=== PATIENT | female | born 1985 | race Caucasian/White ===

== ENCOUNTER 2017-01-22 01:46 | Inpatient (IN) | payer OTHER ==
[2017-01-22] MEDS ORDERED: ELECTROLYTE-148 SOLN 500 ML IV ONE (03:00)
[2017-01-22 03:16] LABS: BASOPHIL 0.5 % (0-2.0); EOSINOPHIL 1.6 % (0-4.5); MCH 27.5 pg (25.7-33.7); MCHC 33.3 g/dl (32.0-36.0); MEAN CELL VOLUME 82.7 fl (80-96); MEAN PLT VOLUME 7.9 fl (7.5-11.1); NEUTROPHILS 71.6 % (42.8-82.8); PLATELET COUNT 211 K/MM3 (134-434); RDW 14.8 % (11.6-15.6); WHITE BLOOD COUNT 11.1 K/mm3 (4.0-10.0)
[2017-01-22 03:35] LABS: INR 1.12 (0.82-1.09); PROTHROMBIN TIME (PATIENT) 12.3 SEC (9.98-11.88)
[2017-01-22 03:37] LABS: ACTIVATED PTT 28.6 SECONDS (26.9-34.4)
[2017-01-22 03:41] LABS: CALCIUM 9.4 mg/dL (8.5-10.1); CREATININE 0.7 mg/dL (0.55-1.02)
[2017-01-22 05:24] VITALS: BMI 40.4
[2017-01-22] MEDS ORDERED: CITRIC ACID/SODIUM CITRATE 30 ML UNIT-DOSE CUP PO ONE (05:32)
[2017-01-22] MEDS ORDERED: ELECTROLYTE-148 SOLN 1,000 ML IV SCH (05:45)
--- NOTE | 2017-01-22 05:45 | HP ---
Past Medical History - Primary Care Physician PCP:: Dori Ramos - Admission Chief Complaint: 31 yrs , previous c/section, SROM since 10.40 pm 01/21/17 , onset LP following that , requests for repeat c/section History of Present Illness: PNC at , [facility] wt gain 71 lbs . Morbidly obese pt work Up : O Pos, Hbsag neg, Rpr nr, Rubella pos, Hiv nr, Quantiferon neg, Pngt 129, Gbs neg, Pa nilm, Gc/Ct neg NT sceen & modified Sequential neg Grwth sono by MFM were done , reviewed. 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 Weeks Gestation by Dates: 38.3 ...EDC by Dates: 02/02/17 ...EDC by Sono: 02/02/17 Heme/Onc: No: Sickle Cell Trait Infectious Disease: No: AIDS, HIV, MRSA, STD's, Tuberculosis Endocrine: No: Diabetes Mellitus, Hyperparathyroidism, Hyperthyroidism, Hypothyroidism - Past Surgical History Past Surgical History: Yes: (05/2013) Hx Myomectomy: No Hx Transabdominal Cerclage: No - Smoking History Smoking history: Never smoked Have you smoked in the past 12 months: No Aproximately how many cigarettes per day: 0 - Alcohol/Substance Use Hx Alcohol Use: No History of Substance Use: reports: None - Social History History of Recent Travel: No Home Medications - Allergies Allergies/Adverse Reactions: Allergies Allergy/AdvReac Type Severity Reaction Status Date / Time aspirin Allergy Unknown Difficulty Verified 06/10/16 09:47 Breathing - Home Medications Home Medications: Ambulatory Orders Albuterol Sulfate Inhaler - [Ventolin Hfa *Inhaler*] 1 inh IH PRN 05/07/13 Budesonide/Formeterol Fumarate [SYMBICORT 160/4.5mcg -] 1 inh PO DAILY PRN 02/27 Montelukast Na [Singulair -] 10 mg PO HS PRN 06/10/16 Vit No.130/Iron/FA [ Vitamins] 1 each PO DAILY #30 tablet 06/10 Physical Exam - Maternity Vital Signs: Vital Signs Temperature 97.8 F 01/22/17 02:40 Pulse Rate 90 01/22/17 02:40 Respiratory Rate 20 01/22/17 02:40 Blood Pressure 124/78 01/22/17 02:40 O2 Sat by Pulse Oximetry (%) Selected Entries 01/22/17 02:40 Weight 290 lb Constitutional: Yes: Well Nourished, Mild Distress, Obese Eyes: Yes: WNL HENT: Yes: WNL, Normocephalic Neck: Yes: WNL Cardiovascular: Yes: WNL, Regular Rate and Rhythm Lungs: Clear to auscultation Breast(s): Yes: WNL - Abdominal Exam/OB Fundal Height: 40 Number of Fetuses: Single Presentation: Vertex Contractions: Yes Regularity: Irregular Intensity: Mild/Mod (4-6 min) Heart Rate (range): 140-150 Heart Rate Location: [facility] Category: I Accelerations: Uniform Decelerations: None - Vaginal Exam/OB Vaginal Bleediing: No Dilatation (cm): close Effacement (%): 60 Amniotic Membrane Status: Ruptured Nitrazine Test: Positive Amniotic Fluid: Yes: Clear Presentation: Vertex/Position Station: -3 - Physical Exam Musculoskeletal: Yes: WNL Extremities: Yes: WNL. No: Calf Tenderness Edema: LLE: 1+, RLE: 1+ Integumentary: Yes: Incision (pfannensteil scar) Deep Tendon Reflex Grade: Normal +2 ...Motor Strength: WNL Psychiatric: Yes: WNL, Alert, Oriented - Labs Lab Results: CBC, BMP 01/22/17 03:10 01/22/17 03:10 Hemorrhage Risk Assessment - Risk Factors Medium Risk Factors: Yes: Prior , uterine surgery,or multiple laparotomies, Obesity (BMI >40) Risk Score: 2 Risk Level: High Risk Problem List - Problems (1) 38 to 41 weeks gestation of Code(s): CZD1182 - (2) Previous section Code(s): Z98.891 - HISTORY OF UTERINE SCAR FROM PREVIOUS SURGERY (3) SROM (spontaneous rupture of membranes) Code(s): AKD2881 - (4) Labor established Code(s): TAY3060 - (5) Morbid obesity with BMI of 40.0-44.9, adult Code(s): E66.01 - MORBID (SEVERE) OBESITY DUE TO EXCESS CALORIES Z68.41 - BODY MASS INDEX (BMI) 40.0-44.9, ADULT Assessment/Plan 31 yrs , previous c/s , srom, in early labor,Morbidly obese , Gbs neg requests for repeat c/s
[2017-01-22] MEDS ORDERED: METHYLERGONOVINE MALEATE 0.2 MG/1 ML AMP IM PRN (09:30)
[2017-01-22] MEDS ORDERED: IBUPROFEN 800 MG/8 ML IJ IVPB PRN (09:46)
--- NOTE | 2017-01-22 10:03 | OP ---
Operative Note - Note: Operative Date: 01/22/17 Pre-Operative Diagnosis: 38.5 weeks, previous c/section , SROM , in labor Operation: Repeat LFTC/section Findings: 8.55 AM, Baby Boy, vx , Rot position, 9/9, wt 8'1'.Ht 19' both tubes & ovaries normal Dr knight supervisor underwriting clerks present in the room Surgeon: Dori Ramos Compensation Administrator: Bernardino Purcell Anesthesiologist/PARTS FINISHER: Carlin Cheema Anesthesia: Spinal Specimens Removed: placenta. cord blood Estimated Blood Loss (mls): 800 Drains, Volume Out (mls): 200 (ramos output , ana cristina color ) Fluid Volume Replaced (mls): 1,500 (iv Ancef 2gm prior to incision ) Operative Report Dictated: Yes
[2017-01-22] MEDS ORDERED: ONDANSETRON 4 MG/2 ML VIAL IVPB PRN (10:13)
[2017-01-22] MEDS ORDERED: OXYTOCIN IV ONE (10:15)
[2017-01-22] MEDS ORDERED: SODIUM CHLORIDE IV ONE (10:15)
--- NOTE | 2017-01-22 10:21 | PN ---
Delivery - Delivery Section: Repeat, Low Flap Transverse (Indication : 38.3 weeks,previous c/section SROM, labor) Type of Anesthesia: Spinal EBL (cc): 800 (IM Methergine 9.30 am post op was given ) Delivery, Single - Stages of Labor Date 1st Stage Initiatied: 01/21/17 Time 1st Stage Initiated: 23:00 Date of Delivery: 01/22/17 Time of Delivery: 08:55 Date Placenta Delivered: 01/22/17 Time Placenta Delivered: 08:56 Placenta: Yes: Manual Removal, Uterine Exploration - Condition of Infant Delivery Manager/Cement Handler Present: Yes Name: Jess Xiao Infant Gender: Male Weight: 8 lb 1 oz Position: Right, OT (cord around neckx1) Total Hours ROM (Hrs/Mins): 10 hrs 16 min - 1 Minute Total Score: 9 5 Minutes Total Score: 9 - Feeding Plan Initial Plan: Exclusive throughout hospitalization Remarks - Remarks Remarks: 31 yrs , 38.3 weeks,previous c/s , Srom , followed by labor , gbs neg, PNC at 2, [facility] Intraop 2 gm iv Ancef prior to incision was given
--- NOTE | 2017-01-22 15:01 | OP ---
DATE OF OPERATION: 01/22/2017 PREOPERATIVE DIAGNOSIS: 38.5 weeks, previous section, spontaneous rupture of membranes, in labor. PROCEDURE PERFORMED: Repeat wfl-gjnu-eywdazbnva section. SURGEON: Dori Ramos MD DIRECTOR STRATEGY: MARQUISE Quezada ANESTHESIOLOGIST: Carlin Cheema MD ANESTHESIA: Spinal. INDICATIONS: This is a 31-year-old 2, para 1-0-0-1 female, morbidly obese, BMI 40.4. She has a history of rupture of membranes since 10:40 p.m. on January 21, and she was in labor, meghana every 4 to 5 minutes. Cervix was still closed. DESCRIPTION OF PROCEDURE: The patient's abdomen was shaved and prepped. A Strong catheter was placed. She was taken to the operating room table. Spinal anesthesia was given. The patient was placed in the supine position. The abdomen was painted and draped in the usual manner. A Pfannenstiel incision was made through the skin and subcutaneous tissue. The anterior rectus sheath was incised transversely. Bleeding points were clamped and cauterized. The rectus muscle was from the rectus sheath. The parietal peritoneum was opened vertically. Then the lower flap by the peritoneum was incised transversely. The lower uterine segment was also incised transversely. The amniotic fluid was clear. The baby was delivered from ROT position at 8:55 a.m. Apgars were 9 and 9, a baby boy. Baby's weight is 8 pounds 1 ounce and length was [address] Jess Xiao (cell stripper final) was present in the room. The placenta was removed completely with the membranes. The uterine incision was closed in 2 layers. The 1st layer was closed with Biosyn 0 suture, a continuous locking sensation. The 2nd layer was closed with Biosyn 0 suture, continuous intermittently locking suture, with vertical mattress sutures were taken. Hemostasis was checked. The bladder peritoneum also was closed with Biosyn 0 suture. Both tubes and ovaries were normal. Irrigation was done. Both tubes and ovaries were normal. Sponge, instrument and needle counts were correct. Then closure of the abdomen was done. The parietal peritoneum was closed with Vicryl 0 suture. Interrupted sutures were taken in the muscles and approximated together, then below the rectus sheath. Hemostasis was checked between the muscle layer and rectus sheath. Then the anterior rectus sheath was closed with Vicryl 0 suture; continuous sutures were taken. Hemostasis was checked in the the subcutaneous tissue, and the subcutaneous tissue was approximated with Vicryl 2-0 interrupted sutures, and the skin was approximated with dunia. A pressure dressing was given. Blood clots were removed from the vagina. The uterus was becoming soft. So bimanual massage was given and the anesthesiologist was asked to give her an injection of Methergine 0.25 IM stat and 40 units of Pitocin was placed in 1000 mL of normal saline. The patient tolerated the procedure well. She was transferred to the recovery room in stable condition. Estimated blood loss was 800 mL. Urine output intraoperatively was 200 mL. She received 2 g of IV Ancef prior to the incision. Von [id number] MTDD
[2017-01-22] MEDS ORDERED: CEFAZOLIN (PRE-DOCKED) 50 ML IVPB ONE (16:35)
[2017-01-22] MEDS: CEFAZOLIN 1 GM/D5W 50 ML IVPB SCH (16:39)
[2017-01-22] MEDS: OXYTOCIN 20 UNITS in 0.9% NS 1,000 ML IV SCH (18:44)
[2017-01-22] MEDS: ENOXAPARIN NA (PORCINE) 40 MG/0.4 ML DISP.SYRIN SQ SCH (21:48)
[2017-01-23] MEDS ORDERED: CEFAZOLIN (PRE-DOCKED) 50 ML IVPB ONE ×2 (01:34→09:46)
[2017-01-23] MEDS: CEFAZOLIN 1 GM/D5W 50 ML IVPB SCH ×2 (01:38→09:53)
[2017-01-23] MEDS: IBUPROFEN 600 MG TABLET (FP) PO PRN ×4 (01:46→19:56)
[2017-01-23] MEDS: SIMETHICONE 80 MG TAB.CHEW (FP) PO PRN ×4 (01:46→19:56)
[2017-01-23] MEDS: OXYTOCIN 20 UNITS in 0.9% NS 1,000 ML IV SCH (04:18)
--- NOTE | 2017-01-23 07:27 | PN ---
Post Progress Note Post Day: 1 Type of Delivery: Repeat C/S Vital Signs: Vital Signs Temperature 98.1 F 01/23/17 06:00 Pulse Rate 81 01/23/17 06:00 Respiratory Rate 18 01/23/17 06:00 Blood Pressure 115/56 01/23/17 06:00 O2 Sat by Pulse Oximetry (%) 100 01/22/17 10:35 Breast Exam: Yes: Soft Uterus: Yes: Fundus Firm Incision: Yes: Dressing dry and intact Abdomen/GI: Yes: Abdomen soft Lochia: Yes: Rubra Lochia, amount: Small Extremities: Yes: Calves non-tender Perineum: Yes: Intact Activity: Ambulating - Labs Labs: CBC WBC 11.1 K/mm3 (4.0-10.0) H 01/22/17 03:10 RBC 3.95 M/mm3 (3.60-5.2) 01/22/17 03:10 Hgb 10.9 GM/dL (10.7-15.3) 01/22/17 03:10 Hct 32.6 % (32.4-45.2) 01/22/17 03:10 MCV 82.7 fl (80-96) 01/22/17 03:10 MCHC 33.3 g/dl (32.0-36.0) 01/22/17 03:10 RDW 14.8 % (11.6-15.6) 01/22/17 03:10 Plt Count 211 K/MM3 (134-434) 01/22/17 03:10 MPV 7.9 fl (7.5-11.1) 01/22/17 03:10 Neutrophils % 71.6 % (42.8-82.8) 01/22/17 03:10 Lymphocytes % 20.9 % (8-40) 01/22/17 03:10 Monocytes % 5.4 % (3.8-10.2) 01/22/17 03:10 Eosinophils % 1.6 % (0-4.5) 01/22/17 03:10 Basophils % 0.5 % (0-2.0) 01/22/17 03:10 Assessment/Plan oob reg diet check labs pain meds
[2017-01-23] MEDS: oxyCODONE HCL 5 MG TABLET PO PRN ×3 (07:47→19:55)
--- NOTE | 2017-01-23 08:05 | PN ---
Progress Note (short form) - Note Progress Note: Post op day#1.S/P C section under spinal anesthesia with duramorph uneventful.Patient stable and has little pain for which she is on medication.No any anesthesia related problem.Patient DC from the anesthesia care.
[2017-01-23 09:17] LABS: BASOPHIL 0.3 % (0-2.0); EOSINOPHIL 0.8 % (0-4.5); MCH 28.3 pg (25.7-33.7); MCHC 33.9 g/dl (32.0-36.0); MEAN CELL VOLUME 83.5 fl (80-96); MEAN PLT VOLUME 7.6 fl (7.5-11.1); NEUTROPHILS 78.6 % (42.8-82.8); PLATELET COUNT 198 K/MM3 (134-434); WHITE BLOOD COUNT 10.8 K/mm3 (4.0-10.0)
[2017-01-23] MEDS ORDERED: BISACODYL 10 MG SUPP.RECT RC PRN (09:47)
[2017-01-23] MEDS: PRENATAL VITAMINS W/ FOLIC ACID TABLET (FP) PO SCH (09:48)
[2017-01-23] MEDS: diphenhydrAMINE HCL 25 MG CAPSULE (FP) PO PRN ×2 (09:48→19:57)
[2017-01-23] MEDS ORDERED: PNEUMOC 13-VAL CONJ-DIP CRM/PF 0.5 ML DISP.SYRIN IM ONE (10:00)
[2017-01-23] MEDS ORDERED: PNEUMOCOCCAL 23 VACCINE 0.5 ML VIAL IM ONE (10:00)
[2017-01-23] MEDS ORDERED: ALBUTEROL SO4 6.7 GM HFA INHALER IH PRN (14:00)
[2017-01-23] MEDS: FERROUS SO4 325 MG TABLET (FP) PO SCH (21:16)
[2017-01-23] MEDS: ENOXAPARIN NA (PORCINE) 40 MG/0.4 ML DISP.SYRIN SQ SCH (21:17)
[2017-01-24] MEDS: oxyCODONE HCL 5 MG TABLET PO PRN ×3 (05:39→20:40)
[2017-01-24] MEDS: SIMETHICONE 80 MG TAB.CHEW (FP) PO PRN ×3 (05:39→20:39)
[2017-01-24] MEDS: IBUPROFEN 600 MG TABLET (FP) PO PRN ×3 (05:40→20:39)
--- NOTE | 2017-01-24 09:19 | PN ---
Progress Note (short form) - Note Progress Note: pod 2 doing well, no c/o, ambualting, no excess vaginal bleeding CBC, BMP 01/23/17 08:00 01/22/17 03:10 Last Vital Signs Temp Pulse Resp BP Pulse Ox 98.7 F 101 H 20 122/72 100 01/23/17 20:46 01/23/17 20:46 01/23/17 20:46 01/23/17 20:46 01/22/17 10:35 abdomen soft, no distension, no cva incision dry, claen no calf tenderness plan ambulate, cbc in am
[2017-01-24] MEDS: FERROUS SO4 325 MG TABLET (FP) PO SCH ×2 (09:27→21:59)
[2017-01-24] MEDS: PRENATAL VITAMINS W/ FOLIC ACID TABLET (FP) PO SCH (09:27)
[2017-01-24] MEDS: OXYTOCIN 20 UNITS in 0.9% NS 1,000 ML IV SCH (20:31)
[2017-01-24] MEDS: SENNOSIDES/DOCUSATE COMBO (SENNA PLUS) TABLET (UD) PO PRN (20:39)
[2017-01-24] MEDS: ENOXAPARIN NA (PORCINE) 40 MG/0.4 ML DISP.SYRIN SQ SCH (21:59)
--- NOTE | 2017-01-25 03:28 | PN ---
Post Progress Note Post Day: 3 Type of Delivery: Repeat C/S Vital Signs: Vital Signs Temperature 98.0 F 01/24/17 22:00 Pulse Rate 79 01/24/17 22:00 Respiratory Rate 18 01/24/17 22:00 Blood Pressure 130/78 01/24/17 22:00 O2 Sat by Pulse Oximetry (%) 100 01/22/17 10:35 Breast Exam: Yes: Soft Uterus: Yes: Fundus Firm Abdomen/GI: Yes: Abdomen soft Lochia: Yes: Rubra Lochia, amount: Small Extremities: Yes: Calves non-tender Perineum: Yes: Intact Activity: Ambulating - Labs Labs: CBC WBC 10.8 K/mm3 (4.0-10.0) H 01/23/17 08:00 RBC 4.23 M/mm3 (3.60-5.2) 01/23/17 08:00 Hgb 12.0 GM/dL (10.7-15.3) D 01/23/17 08:00 Hct 35.3 % (32.4-45.2) 01/23/17 08:00 MCV 83.5 fl (80-96) 01/23/17 08:00 MCHC 33.9 g/dl (32.0-36.0) 01/23/17 08:00 RDW 15.0 % (11.6-15.6) 01/23/17 08:00 Plt Count 198 K/MM3 (134-434) 01/23/17 08:00 MPV 7.6 fl (7.5-11.1) 01/23/17 08:00 Neutrophils % 78.6 % (42.8-82.8) 01/23/17 08:00 Lymphocytes % 16.3 % (8-40) D 01/23/17 08:00 Monocytes % 4.0 % (3.8-10.2) 01/23/17 08:00 Eosinophils % 0.8 % (0-4.5) 01/23/17 08:00 Basophils % 0.3 % (0-2.0) 01/23/17 08:00 Assessment/Plan oob reg diet pain meds
[2017-01-25] MEDS: oxyCODONE HCL 5 MG TABLET PO PRN ×3 (03:48→20:16)
[2017-01-25] MEDS: IBUPROFEN 600 MG TABLET (FP) PO PRN ×3 (03:48→20:16)
[2017-01-25] MEDS: SIMETHICONE 80 MG TAB.CHEW (FP) PO PRN ×3 (03:48→20:16)
[2017-01-25 09:05] LABS: BASOPHIL 0.5 % (0-2.0); EOSINOPHIL 2.9 % (0-4.5); MCHC 33.6 g/dl (32.0-36.0); MEAN CELL VOLUME 83.5 fl (80-96); MEAN PLT VOLUME 7.4 fl (7.5-11.1); NEUTROPHILS 66.9 % (42.8-82.8); PLATELET COUNT 191 K/MM3 (134-434); RDW 15.4 % (11.6-15.6); WHITE BLOOD COUNT 7.1 K/mm3 (4.0-10.0)
[2017-01-25] MEDS: FERROUS SO4 325 MG TABLET (FP) PO SCH ×2 (10:06→22:01)
[2017-01-25] MEDS: PRENATAL VITAMINS W/ FOLIC ACID TABLET (FP) PO SCH (10:06)
[2017-01-25] MEDS: SENNOSIDES/DOCUSATE COMBO (SENNA PLUS) TABLET (UD) PO PRN (22:01)
[2017-01-25] MEDS: ENOXAPARIN NA (PORCINE) 40 MG/0.4 ML DISP.SYRIN SQ SCH (22:01)
[2017-01-26] MEDS: IBUPROFEN 600 MG TABLET (FP) PO PRN ×2 (05:09→10:11)
[2017-01-26] MEDS: oxyCODONE HCL 5 MG TABLET PO PRN (05:09)
[2017-01-26] MEDS: SIMETHICONE 80 MG TAB.CHEW (FP) PO PRN ×2 (05:09→10:12)
[2017-01-26] MEDS: FERROUS SO4 325 MG TABLET (FP) PO SCH (10:06)
[2017-01-26] MEDS: PRENATAL VITAMINS W/ FOLIC ACID TABLET (FP) PO SCH (10:06)
[2017-01-26 11:51] VITALS: BP 123/76; PULSE 77; TEMP 98.2
--- NOTE | 2017-01-28 17:50 | DS ---
Physical Exam-ANGLE BENDER Vital Signs: Vital Signs Temperature 98.2 F 01/26/17 10:00 Pulse Rate 77 01/26/17 10:00 Respiratory Rate 20 01/26/17 10:00 Blood Pressure 123/76 01/26/17 10:00 O2 Sat by Pulse Oximetry (%) 100 01/22/17 10:35 Constitutional: Yes: Well Nourished, Obese Eyes: Yes: WNL HENT: Yes: WNL Neck: Yes: WNL Cardiovascular: Yes: WNL Respiratory: Yes: WNL Gastrointestinal: Yes: WNL, Normal Bowel Sounds, Soft, Abdomen, Obese, Other ( bm done). No: Distention Renal/: Yes: WNL, Other (voiding without difficulty) Pelvis: Yes: WNL ....Post : Yes: Uterus firm, Uterus non-tender, Moderate lochia rubra Breast(s): Yes: WNL Musculoskeletal: Yes: WNL Extremities: Yes: Calf Tenderness Edema: Yes Edema: LLE: 1+, RLE: 1+ Integumentary: Yes: Incision Wound/Incision: Yes: Clean/Dry, Well Approximated, Mcdonough Intact, Open to air. No: Draining, Reddened, Bleeding Neurological: Yes: WNL, Alert, Oriented ...Motor Strength: WNL Psychiatric: Yes: WNL Labs: CBC, BMP 01/25/17 08:00 01/22/17 03:10 Delivery - Delivery Section: Repeat, Low Flap Transverse (Indication : 38.3 weeks,previous c/section SROM, labor) Type of Anesthesia: Spinal Episiotomy/Laceration: None EBL (cc): 800 Delivery, Single - Stages of Labor Date 1st Stage Initiatied: 01/21/17 Time 1st Stage Initiated: 23:00 Date of Delivery: 01/22/17 Time of Delivery: 08:55 Time Placenta Delivered: 08:56 Placenta: Yes: Manual Removal, Uterine Exploration - Condition of Infant Fabric Coating Supervisor/Pharmacy Informatics Manager Present: Yes Name: Jess Xiao Infant Gender: Male Weight: 8 lb 1 oz Position: Right, OT Total Hours ROM (Hrs/Mins): 10 hrs 16 min - 1 Minute Total Score: 9 5 Minutes Total Score: 9 - Feeding Plan Initial Plan: Exclusive throughout hospitalization Remarks - Remarks Remarks: 31 yrs , 38.3 weeks,previous c/s , Srom , followed by labor , gbs neg, PNC at 2, [facility] Intraop 2 gm iv Ancef prior to incision was given . post op course uneventful. discharge on 01/26/17 she will RTC on 01/28/17 for dunia removal Discharge Summary Reason For Visit: IN LABOR Condition: Stable - Instructions Diet, Activity, Other Instructions: Post Instructions DIET: Continue good diet high in protein, calcium, and iron rich foods. Drink at least eight (8) glasses of water daily in addition to other fluids. Regular diet MEDICATIONS: Continue vitamins and iron as previously directed. Motrin and Tylenol may be taken for minor discomfort. ACTIVITY: Mild to moderate exercise may be started in two (2) weeks. Take frequent rest periods. Resume normal activity after six (6) week check up. WOUND CARE OF OPERATIVE SITE: Continue use of perineal bottle until vaginal discharge stops. Keep area clean. Shower daily. Keep abdominal wound dry. Report any drainage or redness to physician. Tub baths, tampons and douches are not permitted for [address] Breast feeding & or Bottle feeding BREAST CARE: (For those that are not ): If engorgement occurs: Wear tight fitting bra. Take Tylenol or Motrin for pain. Apply cold packs (ice in bags to each breast ) FAMILY PLANNING: There are many control alternatives to pursue and they should be discussed at your first office visit. You may resume sexual activity after your six (6) week check up. (Remember, is not a contraceptive) NEXT PHYSICIAN APPOINTMENT: Be certain to call for a one (1) week appointment, unless otherwise directed. RTC Friday for wound check, dunia removal Call Clinic or got to Emergency Dept if you have any of the following: Heavy vaginal bleeding Painful urination Leg pain Unusual odor noted to vaginal bleeding High fever Red streaking noted on breast Referrals: Dori Ramos MD [Staff Physician] - Disposition: HOME - Home Medications Comprehensive Discharge Medication List: Ambulatory Orders Albuterol Sulfate Inhaler - [Ventolin HFA Inhaler -] 1 inh IH PRN 05/07/13 Budesonide/Formeterol Fumarate [SYMBICORT 160/4.5mcg -] 1 inh PO DAILY PRN 02/27 Montelukast Na [Singulair -] 10 mg PO HS PRN 06/10/16 Vit No.130/Iron/FA [ Tablet] 1 each PO DAILY #30 tablet Albuterol Sulfate Inhaler - [Ventolin HFA Inhaler -] 2 puff IH Q4H PRN #0 inhaler 01/23/17 Ferrous Sulfate [Feosol] 325 mg PO DAILY #30 tab 01/23/17 Ibuprofen [Motrin -] 600 mg PO Q4H PRN #30 tablet 01/23/17 Vitamins (Sjr) - 1 tab PO DAILY tablet 01/23/17
--- NOTE | 2017-01-30 13:25 | PATH ---
Surgical Pathology Report Patient Name: LICHA WARE Med. Rec. #: [id number] /Age/Gender: 1985 (Age: 31) / F Account: [id number] Location: [facility] OBS/FORGE OPERATOR Taken: 01/22/2017 Received: 01/23/2017 Reported: 01/30/2017 Physicians: Dori Ramos M.D. Specimen(s) Received PLACENTA Clinical History , 38.3 weeks, SROM, history of asthma Repeat c/section Final Diagnosis PLACENTA, DELIVERY: FOCALLY DISRUPTED THIRD TRIMESTER PLACENTA WITH MODERATE PREVILLOUS, PERIVILLOUS, AND PRECHORIONIC FIBRIN DEPOSITION, CALCIFICATIONS, THREE VESSEL UMBILICAL CORD, AND PLACENTAL MEMBRANES WITH EARLY CHORIOAMNIONITIS. Electronically Signed Julian Marin M.D. Gross Description The specimen is received fresh, labeled "placenta" and is a 503 gram, 21.0 x 15.5 x 2.5 cm placenta with attached membranes and umbilical cord. The attached membranes are nickerson, translucent with focal opacities and insert marginally. The umbilical cord measures 42 cm in length and averages 1.3 cm in diameter. The cord inserts centrally. No true knots or strictures are identified. Cut surface of the umbilical cord reveals 3 vessels. The surface is olivo-blue with fibrin deposition and appropriate caliber vessels. The maternal surface is red-brown with focal defects. Sectioning reveals red-brown, spongy parenchyma. No focal lesions are identified. Supervisor Cd Area sections are submitted in three cassettes as follows: 1- membrane rolls and umbilical cord; 2-3- full thickness sections of placenta. /01/29/2017 [facility]01/29/2017
== END 2017-01-26 11:15 | disposition home or self-care (01) | DRG 540 ==
LOC: JDEL 01:46 → JLDR 02:40 → J3W 11:18
PROVIDERS: ADMIT Obstetrics & Gynecology; ATTEND Obstetrics & Gynecology
PROC: 10D00Z1 Extraction of Products of Conception, Low, Open Approach (ICD-10-PCS; principal; 2017-01-22)
DX: O34.211 Maternal care for low transverse scar from previous cesarean delivery (principal); O99.214 Obesity complicating childbirth; E66.01 Morbid (severe) obesity due to excess calories; Z68.41 Body mass index [BMI] 40.0-44.9, adult; Z3A.38 38 weeks gestation of pregnancy; Z37.0 Single live birth
CPT/HCPCS: 36415; 80048; 85025; 85610; 85730; 86593; 86850; 86900; 86901; 88307-TC; 90732; 94010; G0009

== ENCOUNTER 2017-04-06 06:22 | Emergency (ER) | payer OTHER ==
[2017-04-06] MEDS ORDERED: PENICILLIN G BENZATHINE 1,200,000 UNIT/2 ML PFS IM ONE (06:36)
[2017-04-06 06:38] VITALS: BP 126/69; PULSE 90; TEMP 98.8; BMI 28.0
--- NOTE | 2017-04-06 06:43 | PDOC ---
History of Present Illness - General Chief Complaint: Pain Stated Complaint: SORE THROAT/FEVER Time Seen by Provider: 04/06/17 06:28 History Source: Patient Exam Limitations: No Limitations - History of Present Illness Initial Comments: 04/06/17 06:37 This is a 32-year-old female who comes in complaining of fever, sore throat and swollen glands. Patient has a history of strep pharyngitis in the past. Patient said MAXIMUM TEMPERATURE was 101 last night and has been taking Tylenol throughout the night. Patient otherwise patient has a history of asthma. Patient denies any cough congestion or shortness of breath. PAST MEDICAL HISTORY: no significant history PAST SURGICAL HISTORY: no significant history FAMILY HISTORY: no pertinant history SOCIAL HISTORY: Pt lives with family and is employed. MEDICATIONS: reviewed ALLERGIES: As per nursing notes Review of Systems General: No fevers or chills, no weakness, no weight loss HEENT: No change in vision. No sore throat,. No ear pain CardioVascular: No chest pain or shortness of breath Respiratory:No cough, or wheezing. Gastrointestinal: no nausea, vomitting, diarrhea or constipation, No rectal bleeding Genitourinary: No dysuria, hematuria, or frequency Musculoskeletal: No joint or muscle pain or swelling Neurologic: No headache, vertigo, dizziness or loss of consciousness Psychiatric: nor depression Skin: No rashes or easy bruising Endocrine: no increased thirst or abnormal weight change Allergic: no skin or latex allergy All other systems reviewed and normal GENERAL: The patient is awake, alert, and fully oriented, in no acute distress. HEAD: Normal with no signs of trauma. THROAT: Posterior pharynx has tonsils are enlarged with an exudative pharyngitis. Patient has some submandibular lymphadenopathy bilateral. EYES: Pupils equal, round and reactive to light, extraocular movements intact, sclera anicteric, conjunctiva clear. EXTREMITIES: Normal range of motion, no edema. NEUROLOGICAL: Normal speech, normal gait. PSYCH: Normal mood, normal affect. SKIN: Warm, Dry, normal turgor, no rashes or lesions noted. Assessment and plan: This is a 32-year-old female who comes in with an exudative pharyngitis and fever. Patient meets criteria for strep pharyngitis. Patient given Bicillin L-A and discharged patient will follow-up with her primary care doctor as needed. Past History - Past Medical History Allergies/Adverse Reactions: Allergies Allergy/AdvReac Type Severity Reaction Status Date / Time aspirin Allergy Unknown Difficulty Verified 04/06/17 06:28 Breathing Home Medications: Ambulatory Orders Albuterol Sulfate Inhaler - [Ventolin HFA Inhaler -] 1 inh IH PRN 05/07/13 Budesonide/Formeterol Fumarate [SYMBICORT 160/4.5mcg -] 1 inh PO DAILY PRN 02/27 Montelukast Na [Singulair -] 10 mg PO HS PRN 06/10/16 Vit No.130/Iron/FA [ Tablet] 1 each PO DAILY #30 tablet Albuterol Sulfate Inhaler - [Ventolin HFA Inhaler -] 2 puff IH Q4H PRN #0 inhaler 01/23/17 Ferrous Sulfate [Feosol] 325 mg PO DAILY #30 tab 01/23/17 Ibuprofen [Motrin -] 600 mg PO Q4H PRN #30 tablet 01/23/17 Vitamins (Sjr) - 1 tab PO DAILY tablet 01/23/17 Asthma: Yes Cancer: No Cardiac Disorders: No Diabetes: No HTN: No Seizures: No Thyroid Disease: No - Reproductive History (#): 1 Para: 1 - Psycho/Social/Smoking Cessation Hx Anxiety: No Suicidal Ideation: No Smoking Status: No Smoking History: Never smoked Have you smoked in the past 12 months: No Number of Cigarettes Smoked Daily: 0 Hx Alcohol Use: No Drug/Substance Use Hx: No Substance Use Type: None Hx Substance Use Treatment: No *DC/Admit/Observation/Transfer Diagnosis at time of Disposition: Acute streptococcal pharyngitis - Discharge Dispostion Disposition: HOME Condition at time of disposition: Stable Admit: No - Patient Instructions Printed Discharge Instructions: DI for Strep Throat Additional Instructions: You were given a long-acting shot of penicillin which will fully treat you for strep throat. Tylenol or Motrin as needed for fevers and pain for the next 24-48 hours. Return to the emergency department immediately with ANY new, persistent or worsening symptoms. Continue any medications as previously prescribed by your physician. You should follow up with your primary doctor as soon as possible regarding today's emergency department visit. . Please make sure your doctor reviews the results of your emergency evaluation. Thank you for coming to the Emergency Department today for your care. It was a pleasure to see you today. Please note that your evaluation is INCOMPLETE until you follow-up with your doctor.
== END 2017-04-06 07:10 | disposition home or self-care (01) ==
LOC: FER 06:22
DX: J02.0 Streptococcal pharyngitis (principal); J45.909 Unspecified asthma, uncomplicated
CPT/HCPCS: 96372; 99281-25

== ENCOUNTER 2017-10-22 05:45 | Emergency (ER) | payer OTHER ==
[2017-10-22 05:54] VITALS: BP 123/86; PULSE 90; TEMP 97.8; BMI 36.2
--- NOTE | 2017-10-22 06:03 | PDOC ---
History of Present Illness - General Chief Complaint: Pain, Acute Stated Complaint: STOMACH VIRUS X 3 WEEKS Time Seen by Provider: 10/22/17 05:53 History Source: Patient Exam Limitations: No Limitations - History of Present Illness Initial Comments: 10/22/17 05:58 This is an obese 32-year-old female who comes in complaining of 3 weeks of what initially was some nausea vomiting and diarrhea. Patient said those symptoms resolved and now she has been having some upper abdominal pain post eating associated with some nausea and excess abdominal gas. Patient said she's also continued to have some intermittent diarrhea. She denies fevers or chills. She does have a family history of cholecystitis. PAST MEDICAL HISTORY: no significant history PAST SURGICAL HISTORY: no significant history FAMILY HISTORY: no pertinant history SOCIAL HISTORY: Pt lives with family and is employed. MEDICATIONS: reviewed ALLERGIES: As per nursing notes Review of Systems General: No fevers or chills, no weakness, no weight loss HEENT: No change in vision. No sore throat,. No ear pain CardioVascular: No chest pain or shortness of breath Respiratory:No cough, or wheezing. Gastrointestinal: + nausea, + vomitting, + diarrhea, no constipation, No rectal bleeding Genitourinary: No dysuria, hematuria, or frequency Musculoskeletal: No joint or muscle pain or swelling Neurologic: No headache, vertigo, dizziness or loss of consciousness Psychiatric: nor depression Skin: No rashes or easy bruising Endocrine: no increased thirst or abnormal weight change Allergic: no skin or latex allergy All other systems reviewed and normal Exam: General: Well-nourished well-developed individual, no acute distress HEENT: Throat: Normal, tonsils normal, no erythema or exudate Neck: Supple, no meningeal signs, no lymphadenopathy Eyes::Pupils equal reactive and round, extraocular motion intact Chest: Nontender to palpation Cardiac: S1-S2 normal, regular rate and rhythm, no murmurs rubs or gallops Respiratory: Lungs clear to auscultation bilateral Abdomen: Soft, nondistended, normal bowel sounds, tender to palpation right upper quadrant, no guarding or rebound, negative Garcia sign Extremities: Warm, dry, no cyanosis, clubbing, or edema Skin: No rashes Neuro: Alert and oriented x3, CN II - XII intact, nonfocal exam with normal strength, normal sensation, normal reflexes, normal gait, Psych: Normal mood and affect Medical decision making: this is a 32-year-old female who is obese and comes in complaining of 3 weeks of right upper quadrant pain with some nausea and diarrhea. Differential includes viral etiology, cholelithiasis/cholecystitis, gastritis, gastrointestinal parasite, gastroparesis Will obtain workup including CBC, comp, lipase, stool culture, stool for ova and parasites Well order a gallbladder ultrasound Will reassess and follow-up the workup. 10/22/17 06:45 Reassessment: Patient is clinically stable and unchanged workup is still pending. Care of patient transferred to at 1900 hrs. Case discussed in detail with oncoming Emergency Physician including history, physical exam and ancillary studies. Oncoming Emergency Physician has assumed care for the patient and will complete the evaluation and treatment. Patient is aware of the plan. Pt is clinically unchanged and stable. Past History - Past Medical History Allergies/Adverse Reactions: Allergies Allergy/AdvReac Type Severity Reaction Status Date / Time aspirin Allergy Unknown Difficulty Verified 10/22/17 05:47 Breathing Home Medications: Ambulatory Orders Albuterol Sulfate Inhaler - [Ventolin Hfa Inhaler -] 1 puff IH PRN 10/22/17 Asthma: Yes Cancer: No Cardiac Disorders: No Diabetes: No HTN: No Seizures: No Thyroid Disease: No - Reproductive History (#): 1 Para: 1 - Suicide/Smoking/Psychosocial Hx Smoking Status: No Smoking History: Never smoked Have you smoked in the past 12 months: No Number of Cigarettes Smoked Daily: 0 Hx Alcohol Use: No Drug/Substance Use Hx: No Substance Use Type: None Hx Substance Use Treatment: No *DC/Admit/Observation/Transfer Diagnosis at time of Disposition: Abdominal pain Qualifiers: Abdominal location: right upper quadrant Qualified Code(s): R10.11 - Right upper quadrant pain - Discharge Dispostion Condition at time of disposition: Stable - Referrals - Patient Instructions - Post Discharge Activity
[2017-10-22 07:19] LABS: BASO % 0.4 % (0-2.0); EOS % 3.7 % (0-4.5); HEMATOCRIT 41.2 % (32.4-45.2); HEMOGLOBIN 13.8 GM/dL (10.7-15.3); LYMPH % 34.6 % (8-40); MCH 28.3 pg (25.7-33.7); MCHC 33.5 g/dl (32.0-36.0); MEAN CELL VOLUME 84.3 fl (80-96); MEAN PLT VOLUME 7.4 fl (7.5-11.1); MONO % 8.3 % (3.8-10.2); PLATELET COUNT 228 K/MM3 (134-434); RBC 4.89 M/mm3 (3.60-5.2); RDW 14.1 % (11.6-15.6); WHITE BLOOD COUNT 6.3 K/mm3 (4.0-10.0)
[2017-10-22 07:21] LABS: URINE APPEARANCE SLCLOUDY; URINE BILIRUBIN NEGATIVE (NEGATIVE); URINE BLOOD NEGATIVE (NEGATIVE); URINE COLOR YELLOW; URINE GLUCOSE (UA) NEGATIVE (NEGATIVE); URINE KETONE NEGATIVE (NEGATIVE); URINE NITRITE NEGATIVE (NEGATIVE); URINE PROTEIN NEGATIVE (NEGATIVE); URINE UROBILINOGEN NEGATIVE mg/dL (0.2-1.0)
[2017-10-22 07:24] LABS: HCG,QUALITATIVE URINE NEGATIVE
[2017-10-22 07:46] LABS: ALBUMIN 3.5 g/dl (3.4-5.0); ALK PHOS 96 U/L (45-117); ANION GAP 6 (8-16); BILIRUBIN,TOTAL 0.2 mg/dL (0.2-1.0); BLOOD UREA NITROGEN 18 mg/dL (7-18); CALCIUM 8.2 mg/dL (8.5-10.1); CHLORIDE 106 mmol/L (98-107); CO2 26 mmol/L (21-32); CREATININE 0.8 mg/dL (0.55-1.02); GLUCOSE,RANDOM 117 mg/dL (74-106); SGOT/AST 43 U/L (15-37); SGPT/ALT 147 U/L (12-78); SODIUM 138 mmol/L (136-145); TOT PROT 7.6 g/dl (6.4-8.2)
[2017-10-22 07:49] LABS: LIPASE 244 U/L (73-393)
[2017-10-22 07:58] LABS: URINE LEUK ESTERASE 1+ (NEGATIVE)
[2017-10-22 08:00] LABS: EPI CELLS MODERATE /HPF (FEW); URINE BACTERIA RARE /hpf (NONE SEEN)
--- NOTE | 2017-10-22 08:21 | PDOC ---
*Physical Exam - Vital Signs Last Vital Signs Temp Pulse Resp BP Pulse Ox 97.8 F 90 16 123/86 98 10/22/17 05:49 10/22/17 05:49 10/22/17 05:49 10/22/17 05:49 10/22/17 05:49 - Physical Exam General Appearance: Yes: Nourished, Appropriately Dressed, Moderate Distress HEENT: positive: HENRIQUE Neck: positive: Supple Respiratory/Chest: positive: Lungs Clear ( ) Gastrointestinal/Abdominal: positive: Normal Bowel Sounds, Protuberent, Tenderness (Mild diffuse tenderness ). negative: Organomegaly, Rebound Lymphatic: negative: Adenopathy Musculoskeletal: positive: Normal Inspection Extremity: positive: Normal Capillary Refill Integumentary: positive: Normal Color Neurologic: positive: Fully Oriented, Alert, Normal Mood/Affect ED Treatment Course - LABORATORY CBC & Chemistry Diagram: 10/22/17 06:15 10/22/17 06:15 - ADDITIONAL ORDERS Additional order review: Laboratory Results 10/22/17 10/22/17 06:20 06:15 Sodium 138 Potassium 4.0 Chloride 106 Carbon Dioxide 26 Anion Gap 6 L BUN 18 Creatinine 0.8 Creat Clearance w eGFR > 60 Random Glucose 117 H Calcium 8.2 L Total Bilirubin 0.2 D AST 43 H ALT 147 H Alkaline Phosphatase 96 Total Protein 7.6 Albumin 3.5 Lipase 244 Urine Color Yellow Urine Appearance Slcloudy Urine pH 6.0 Ur Specific Gravette 1.023 Urine Protein Negative Urine Glucose (UA) Negative Urine Ketones Negative Urine Blood Negative Urine Nitrite Negative Urine Bilirubin Negative Urine Urobilinogen Negative Ur Leukocyte Esterase 1+ H Urine WBC (Auto) 2 Urine RBC (Auto) 1 Ur Epithelial Cells Moderate Urine Bacteria Rare Urine HCG, Qual Negative 10/22/17 06:15 RBC 4.89 D MCV 84.3 MCHC 33.5 RDW 14.1 MPV 7.4 L Neutrophils % 53.0 D Lymphocytes % 34.6 D Monocytes % 8.3 D Eosinophils % 3.7 Basophils % 0.4 Medical Decision Making - Medical Decision Making While being observed here, patient is comfortable, stable . US abdomen to be done now 10/22/17 08:27 *DC/Admit/Observation/Transfer Diagnosis at time of Disposition: Hepatomegaly Abdominal pain Qualifiers: Abdominal location: right upper quadrant Qualified Code(s): R10.11 - Right upper quadrant pain - Discharge Dispostion Disposition: HOME Condition at time of disposition: Stable Admit: No - Referrals Referrals: Paul Sheth MD [Staff Physician] - - Patient Instructions Printed Discharge Instructions: DI for Abdominal Pain-Adult Additional Instructions: Avoid fatty foods, suggested to loose weight, exercise. Follow up with your doctor laboratory results of Stool for O/P C/S and Hepatitis Profile - Post Discharge Activity
[2017-10-24 00:06] LABS: HBSAG SCREEN Negative (Negative); HEP A AB, IGM Negative (Negative); HEP B CORE AB, TOT Negative (Negative)
== END 2017-10-22 10:00 | disposition home or self-care (01) ==
LOC: FER 05:45
DX: R10.11 Right upper quadrant pain (principal)
CPT/HCPCS: 36415; 76705-TC; 80053; 81003; 81015; 83690; 84703; 85025; 86704; 86706; 86708; 87045; 87046; 87177; 87209; 87340; 99281-25

== ENCOUNTER 2019-03-30 13:50 | Emergency (ER) | payer OTHER ==
--- NOTE | 2019-03-30 13:53 | PDOC ---
History of Present Illness - General Chief Complaint: Respiratory Stated Complaint: fever,sore throat Time Seen by Provider: 03/30/19 13:52 - History of Present Illness Initial Comments: 03/30/19 14:29 34f with pmh of asthma presents with 3 days of sore throat and fever at 102 at home. Has taken Advil every 4 hours sicne friday. Had some cough last night and feels somewhat congested. Also used her albuterol last night. Has strep throat in the past. Denies chills, sob, chest pain, productive cough. No sick contacts or recent travel. Past History - Past Medical History Allergies/Adverse Reactions: Allergies Allergy/AdvReac Type Severity Reaction Status Date / Time aspirin AdvReac Unknown Difficulty Verified 03/30/19 13:52 Breathing Home Medications: Ambulatory Orders Albuterol Sulfate Inhaler - [Ventolin Hfa Inhaler -] 1 puff IH PRN 10/22/17 Amoxicillin - [Amoxicillin 500mg Capsule -] 500 mg PO BID 10 Days #20 capsule Asthma: Yes Cancer: No Cardiac Disorders: No CVA: No COPD: No Diabetes: No HTN: No Seizures: No Thyroid Disease: No - Reproductive History (#): 1 Para: 1 - Suicide/Smoking/Psychosocial Hx Smoking Status: No Smoking History: Never smoked Have you smoked in the past 12 months: No Number of Cigarettes Smoked Daily: 0 Hx Alcohol Use: No Drug/Substance Use Hx: No Substance Use Type: None Hx Substance Use Treatment: No Review of Systems - Review of Systems Able to Perform ROS?: Yes Is the patient limited Pakistani proficient: No Constitutional: Yes: See HPI HEENTM: Yes: See HPI Respiratory: Yes: See HPI Cardiac (ROS): No: Symptoms Reported ABD/GI: No: Symptoms Reported *Physical Exam - Physical Exam General Appearance: Yes: Appropriately Dressed, Obese. No: Apparent Distress HEENT: positive: EOMI, HENRIQUE, Tonsillar Exudate, Tonsillar Erythema. negative: Muffled/Hoarse voice, TM Bulging, TM Dull, TM Erythema Neck: positive: Lymphadenopathy (R), Lymphadenopathy (L) Respiratory/Chest: positive: Lungs Clear, Normal Breath Sounds. negative: Chest Tender, Respiratory Distress Cardiovascular: positive: Regular Rhythm, S1, S2, Tachycardia Gastrointestinal/Abdominal: positive: Normal Bowel Sounds, Flat, Soft. negative : Tender Musculoskeletal: positive: Normal Inspection. negative: CVA Tenderness Extremity: positive: Normal Capillary Refill, Normal Inspection Integumentary: positive: Normal Color, Dry, Warm Neurologic: positive: Fully Oriented, Alert, Normal Mood/Affect Medical Decision Making - Medical Decision Making 03/30/19 14:55 34F with sore throat and fever presenting with tonsillar exudatwes and erythema. Will obtain cxr and rapid strep, Strep pharyngitis vs bacterial vs viral tonsillitis Patient had measured elevated temp no significant cough, painful lymph nodes, and tonsillar exudates. Rapid strep pending Xray negative for acute processes. 03/30/19 15:06 Ok to dc with follow up. *DC/Admit/Observation/Transfer Diagnosis at time of Disposition: Tonsillitis, Strep sore throat - Discharge Dispostion Disposition: HOME Condition at time of disposition: Good Decision to Admit order: No - Prescriptions Prescriptions: Amoxicillin - [Amoxicillin 500mg Capsule -] 500 mg PO BID 10 Days #20 capsule - Referrals Schedule a call back: Call back strep culture - Patient Instructions Additional Instructions: Take your antibiotics as ordered for 10 days. Come back to the emergency department for any new, worsening or concerning symptoms. Follow up with your primary care provider. - Post Discharge Activity
[2019-03-30 14:07] VITALS: BP 128/83; TEMP 98.4; BMI 37.6
--- NOTE | 2019-03-30 14:29 | PDOC ---
Attending Attestation - Resident Resident Name: Vidal Huber - ED Attending Attestation I have performed the following: I have examined & evaluated the patient, The case was reviewed & discussed with the resident, I agree w/resident's findings & plan - HPI HPI: 03/30/19 14:26 Healthy 34-year-old female with history of strep pharyngitis presents with 3-4 days of progressive throat pain and swelling with odynophagia, fever/chills for 2 days measured at 102 last night. Positive gland pain in her neck, no stridor or difficulty breathing, no cough but some chest congestion. Feels like past strep pharyngitis, presents for evaluation. - Physicial Exam PE: 03/30/19 14:27 Afebrile here, heart rate 98 auscultation on my examination Comfortable, seated upright in stretcher speaking full sentences clearly No stridor, normal voice Bilateral tonsillar swelling with exudate, right greater than left. Uvula midline, airway patent, trachea midline. Positive bilateral submandibular lymphadenopathy. Neck supple. Heart is regular, lungs are clear without wheezing or focally decreased breath sounds or prolonged expiration No rash - Medical Decision Making 03/30/19 14:28 Healthy 34-year-old female with clinical presentation most consistent with strep pharyngitis, no airway or respiratory issues. Rapid strep sent Treat with antibiotics Chest x-ray given history of asthma and chest congestion Understands return criteria 03/30/19 14:57 on my prelim review, CXR without acute pathology. rapid strep pending, will treat empirically with amoxicillin course.
[2019-03-30] MEDS ORDERED: AMOXICILLIN 500 MG CAPSULE (FP) PO ONE (14:34)
[2019-03-30] MEDS ORDERED: AMOXICILLIN 250 MG CAPSULE ONE (14:42)
[2019-03-30 15:17] VITALS: PULSE 90
== END 2019-03-30 15:12 | disposition home or self-care (01) ==
LOC: FER 13:50
DX: J03.90 Acute tonsillitis, unspecified (principal); J02.0 Streptococcal pharyngitis; J45.909 Unspecified asthma, uncomplicated
CPT/HCPCS: 71046-TC-FY; 81025; 87070; 87077; 87880; 99282-25

== ENCOUNTER 2020-08-18 18:15 | Emergency (ER) | payer OTHER ==
[2020-08-18 18:27] VITALS: BP 132/89; PULSE 99; TEMP 97.8; BMI 39.0
[2020-08-18] MEDS ORDERED: IBUPROFEN 400 MG TABLET (FP) PO ONE ×2 (18:28→18:31)
== END 2020-08-18 21:07 | disposition home or self-care (01) ==
LOC: FER 18:15
DX: S62.102A Fracture of unspecified carpal bone, left wrist, initial encounter for closed fracture (principal)
CPT/HCPCS: 73110-TC-LT-FY; 73130-TC-LT-FY; 99284-25

== ENCOUNTER 2021-09-25 01:47 | Emergency (ER) | payer OTHER ==
[2021-09-25 01:59] VITALS: BP 144/92; PULSE 97; TEMP 97.7; BMI 40.4
[2021-09-25] MEDS ORDERED: ACETAMINOPHEN 1000 MG/100 ML BAG IVPB ONE (02:07)
[2021-09-25] MEDS ORDERED: SODIUM CHLORIDE 1,000 ML IV STA (02:07)
[2021-09-25] MEDS ORDERED: METOCLOPRAMIDE HCL INJECTION 10 MG/2 ML VIAL IVPB ONE (02:08)
[2021-09-25] MEDS ORDERED: METOCLOPRAMIDE HCL INJECTION 10 MG/2 ML VIAL ONE (02:16)
[2021-09-25] MEDS ORDERED: ACETAMINOPHEN INJECTION 100 ML IVPB ONE (02:16)
[2021-09-25 02:54] LABS: BASO % 0.4 % (0-2.0); EOS % 2.8 % (0-4.5); HEMATOCRIT 40.4 % (32.4-45.2); HEMOGLOBIN 13.9 GM/dL (10.7-15.3); LYMPH % 31.6 % (8-40); MCH 29.2 pg (25.7-33.7); MCHC 34.3 g/dl (32.0-36.0); MEAN CELL VOLUME 85.2 fl (80-96); MEAN PLT VOLUME 7.5 fl (7.5-11.1); MONO % 7.5 % (3.8-10.2); NEUT % 57.7 % (42.8-82.8); PLATELET COUNT 243 10^3/uL (134-434); RBC 4.75 M/mm3 (3.60-5.2); RDW 13.9 % (11.6-15.6); URINE APPEARANCE Error; URINE BILIRUBIN NEGATIVE (NEGATIVE); URINE COLOR YELLOW; URINE GLUCOSE (UA) NEGATIVE (NEGATIVE); URINE KETONE NEGATIVE (NEGATIVE); URINE LEUK ESTERASE NEGATIVE (NEGATIVE); URINE NITRITE NEGATIVE (NEGATIVE); URINE PROTEIN NEGATIVE (NEGATIVE); WHITE BLOOD COUNT 9.4 K/mm3 (4.0-10.0)
[2021-09-25 02:57] LABS: HCG,QUALITATIVE URINE Negative
[2021-09-25 03:21] LABS: ALBUMIN 3.8 g/dl (3.4-5.0); CALCIUM 9.3 mg/dL (8.5-10.1)
[2021-09-25 03:22] LABS: BLOOD UREA NITROGEN 14.6 mg/dL (7-18)
[2021-09-25 03:24] LABS: CREATININE 0.7 mg/dL (0.55-1.3)
[2021-09-25 03:26] LABS: BILIRUBIN,TOTAL 0.4 mg/dL (0.2-1); TOT PROT 8.3 g/dl (6.4-8.2)
== END 2021-09-25 03:54 | disposition home or self-care (01) ==
LOC: FER 01:47
PROC: 3E033NZ Introduction of Analgesics, Hypnotics, Sedatives into Peripheral Vein, Percutaneous Approach (ICD-10-PCS; principal; 2021-09-25)
PROC: 3E033GC Introduction of Other Therapeutic Substance into Peripheral Vein, Percutaneous Approach (ICD-10-PCS; 2021-09-25)
PROC: 3E0337Z Introduction of Electrolytic and Water Balance Substance into Peripheral Vein, Percutaneous Approach (ICD-10-PCS; 2021-09-25)
DX: K29.70 Gastritis, unspecified, without bleeding (principal); K21.9 Gastro-esophageal reflux disease without esophagitis; R11.10 Vomiting, unspecified; R10.9 Unspecified abdominal pain
CPT/HCPCS: 36415; 74177-TC; 80053; 81003; 81025; 83690; 84703; 85025; 87077; 87086; 99285-25; C9803; J0131; Q9967; U0003; U0005

== ENCOUNTER 2021-10-20 21:28 | Emergency (ER) | payer OTHER ==
[2021-10-20 21:46] VITALS: PULSE 80; TEMP 97.9; BMI 41.5
[2021-10-20] MEDS ORDERED: FLUORESCEIN NA 1 EA STRIP ONE (21:47)
[2021-10-20] MEDS ORDERED: FLUORESCEIN NA 1 EA STRIP OS ONE (21:47)
[2021-10-20] MEDS ORDERED: TETRACAINE 0.5% HCL 0.6ML DROPPER.BOTTLE OS ONE (21:47)
[2021-10-20] MEDS ORDERED: TETRACAINE 0.5% OPHTH SOLN 2 ML BOTTLE ONE (21:47)
[2021-10-20] MEDS ORDERED: ERYTHROMYCIN 0.5% OPHTHALMIC OINTMENT 3.5 GM TUBE ONE (22:12)
[2021-10-20] MEDS ORDERED: ERYTHROMYCIN 0.5% OPHTHALMIC OINTMENT 3.5 GM TUBE OS ONE (22:18)
[2021-10-20 22:23] VITALS: BP 136/83
== END 2021-10-20 22:23 | disposition home or self-care (01) ==
LOC: FER 21:28
DX: H10.212 Acute toxic conjunctivitis, left eye (principal)
CPT/HCPCS: 99283-25

== ENCOUNTER 2022-10-19 19:50 | Observation (INO) | payer OTHER ==
[2022-10-19] MEDS ORDERED: PIPERACILLIN/TAZOB 3.375 GM 3.375 GM in DEXTROSE 5%-WATER - 50 ML IVPB ONE (20:02)
[2022-10-19 20:06] VITALS: RESP 20
[2022-10-19] MEDS ORDERED: PIPERACILLIN/TAZOBACTAM 3.375 GM VIAL IVPB ONE (20:06)
[2022-10-19] MEDS ORDERED: ACETAMINOPHEN INJECTION 100 ML IVPB ONE (20:28)
[2022-10-19 20:33] LABS: HEMATOCRIT 33.2 % (32.4-45.2); HEMOGLOBIN 11.5 G/dL (10.7-15.3); MCH 29.8 pg (25.7-33.7); MCHC 34.5 g/dl (32.0-36.0); MEAN CELL VOLUME 86.2 fl (80-96); PLATELET COUNT 307.5 10^3/uL (134-434); RBC 3.85 10^6/uL (3.60-5.2); RDW 14.3 % (11.6-15.6); WHITE BLOOD COUNT 16.3 10^3/uL (4.0-10.8)
[2022-10-19] MEDS ORDERED: ACETAMINOPHEN 1000 MG/100 ML BAG IVPB ONE (20:37)
[2022-10-19 20:49] LABS: ALBUMIN 3.1 g/dl (3.4-5.0); CREATININE 0.8 mg/dl (0.55-1.3)
[2022-10-19] MEDS ORDERED: MAGNESIUM SULF 50% (8.12 MEQ/2 ML-1 GM VIAL) IVPB ONE (21:09)
[2022-10-19] MEDS ORDERED: POTASSIUM CHLORIDE ORAL LIQUID 20 MEQ/15 ML PO ONE (21:10)
[2022-10-19] MEDS ORDERED: POTASSIUM CHLORIDE ORAL LIQUID 20 MEQ/15 ML ONE (21:11)
[2022-10-19] MEDS ORDERED: MAGNESIUM SULFATE IN WATER 2 GM/50 ML IVPB IVPB ONE (21:12)
[2022-10-19] MEDS ORDERED: VANCOMYCIN 1,000 MG VIAL (RESTRICTED TO ID ONLY) ONE (23:11)
[2022-10-19] MEDS: VANCOMYCIN 1 GM in D5W (PRE-DOCKED) 1,000 MG/250 ML IVPB ONE (23:14)
[2022-10-20] MEDS ORDERED: SODIUM CHLORIDE 1,000 ML IV SCH (02:30)
[2022-10-20] MEDS ORDERED: ACETAMINOPHEN 1000 MG/100 ML BAG IVPB PRN (02:30)
[2022-10-20] MEDS ORDERED: MELATONIN 5 MG TABLETS PO PRN (02:30)
[2022-10-20] MEDS ORDERED: PIPERACILLIN/TAZOB 2.25 GM 2.25 GM in DEXTROSE 5%-WATER - 50 ML IVPB SCH (03:00)
[2022-10-20 03:04] VITALS: BMI 40.4
[2022-10-20] MEDS: PIPERACILLIN/TAZOB 3.375 GM 3.375 GM in DEXTROSE 5%-WATER - 50 ML IVPB SCH ×2 (05:00→08:28)
[2022-10-20] MEDS ORDERED: ALBUTEROL SO4 HFA INHALER IH PRN (05:40)
[2022-10-20 06:47] VITALS: PULSE 93
[2022-10-20] MEDS ORDERED: INSULIN SLIDING SCALE (NOVOLOG) 1 VIAL SQ SCH (07:00)
[2022-10-20 09:36] LABS: ACTIVATED PTT 34.8 SECONDS (25.2-36.5); INR 1.64 (0.83-1.09)
[2022-10-20] MEDS: VANCOMYCIN 1 GM in D5W (PRE-DOCKED) 1,000 MG/250 ML IVPB ONE (09:36)
[2022-10-20 09:59] LABS: CALCIUM 8.1 mg/dl (8.5-10); CREATININE 0.6 mg/dl (0.55-1.3); MAGNESIUM 2.3 mg/dL (1.8-2.4)
[2022-10-20] MEDS ORDERED: VANCOMYCIN PREMIX 1.5 GM 1,500 MG/300 ML BAG IVPB SCH (10:00)
[2022-10-20 10:04] LABS: BASO % 0.2 % (0-2.0); EOS % 2.2 % (0-4.5); HEMATOCRIT 29.2 % (32.4-45.2); HEMOGLOBIN 9.9 GM/dL (10.7-15.3); LYMPH % 17.3 % (8-40); MCH 28.7 pg (25.7-33.7); MCHC 33.8 g/dl (32.0-36.0); MEAN CELL VOLUME 84.8 fl (80-96); MEAN PLT VOLUME 7.4 fl (7.5-11.1); MONO % 5.5 % (3.8-10.2); NEUT % 74.8 % (42.8-82.8); PLATELET COUNT 304 10^3/uL (134-434); RBC 3.45 M/mm3 (3.60-5.2); RDW 14.3 % (11.6-15.6); WHITE BLOOD COUNT 12.1 K/mm3 (4.0-10.0)
[2022-10-20 10:20] VITALS: BP 106/61; TEMP 98.7
[2022-10-21] MEDS ORDERED: PIPERACILLIN/TAZOB 3.375 GM 3.375 GM in DEXTROSE 5%-WATER - 50 ML IVPB SCH (03:00)
[2022-10-21] MEDS ORDERED: VANCOMYCIN PREMIX 1.5 GM 1,500 MG/300 ML BAG IVPB SCH (10:00)
== END 2022-10-20 12:31 | disposition left against medical advice (07) ==
LOC: FER 19:50 → FM/S 10-20 00:24
PROVIDERS: ADMIT Internal Medicine
PROC: 3E0337Z Introduction of Electrolytic and Water Balance Substance into Peripheral Vein, Percutaneous Approach (ICD-10-PCS; principal; 2022-10-20)
PROC: 3E03329 Introduction of Other Anti-infective into Peripheral Vein, Percutaneous Approach (ICD-10-PCS; 2022-10-20)
PROC: 3E033GC Introduction of Other Therapeutic Substance into Peripheral Vein, Percutaneous Approach (ICD-10-PCS; 2022-10-20)
PROC: 3E033NZ Introduction of Analgesics, Hypnotics, Sedatives into Peripheral Vein, Percutaneous Approach (ICD-10-PCS; 2022-10-20)
DX: L03.311 Cellulitis of abdominal wall (principal); L76.82 Other postprocedural complications of skin and subcutaneous tissue; Z88.8 Allergy status to other drugs, medicaments and biological substances; E66.01 Morbid (severe) obesity due to excess calories; Z68.41 Body mass index [BMI] 40.0-44.9, adult
CPT/HCPCS: 36415; 71045-TC-FY; 74177-TC; 80048; 80053; 82962; 83735; 85025; 85610; 85730; 87070; 87076; 87186; 87205; 96361; 96365; 96366; 96367; 96375; 96376; 99285-25; C9803-CS; G0378; Q9967; U0003; U0005